=== PATIENT | female | born 1955 | race Caucasian/White ===

== ENCOUNTER 2017-01-15 10:12 | Outpatient (CLI) ==
[2017-01-15 10:52] LABS: HEMATOCRIT 44.6 % (37.0-47.0); HEMOGLOBIN 15.2 g/dl (12.0-16.0); MEAN CORPUSCULAR HEMOGLOBIN 29.9 pg (27.0-31.0); MEAN CORPUSCULAR HGB CONC 34.1 (31.8-35.4); MEAN CORPUSCULAR VOLUME 87.6 fl (81.0-99.0); RED BLOOD COUNT 5.09 10^6/ul (4.20-5.40); WHITE BLOOD COUNT 8.73 K/ul (4.6-10.2)
[2017-01-15 11:35] LABS: ALBUMIN 3.3 g/dL (3.4-5.0); ALBUMIN/GLOBULIN RATIO 0.89; ANION GAP 13.8; BILIRUBIN,TOTAL 0.23 mg/dL (0.00-1.20); BUN/CREATININE RATIO 22.72; CALCIUM 8.7 mg/dL (8.2-10.2); CREATININE 0.66 mg/dL (0.60-1.30); MAGNESIUM 2.1 mg/dL (1.7-2.2); PHOSPHORUS 3.5 mg/dL (2.8-4.1); POTASSIUM 3.8 mmol/L (3.5-5.10)
== END 2017-01-15 10:13 | disposition home or self-care (01) ==
LOC: LAB 10:12
PROVIDERS: ATTEND Nurse Practitioner Family
DX: M81.0 Age-related osteoporosis without current pathological fracture (principal)
CPT/HCPCS: 36415; 80053; 82306; 83735; 83970; 84100; 84443; 85027

== ENCOUNTER 2017-07-23 09:16 | Outpatient (CLI) ==
[2017-07-23 09:38] LABS: HEMATOCRIT 45.7 % (37.0-47.0); HEMOGLOBIN 15.8 g/dl (12.0-16.0); MEAN CORPUSCULAR HEMOGLOBIN 30.3 pg (27.0-31.0); MEAN CORPUSCULAR HGB CONC 34.6 (31.8-35.4); MEAN CORPUSCULAR VOLUME 87.7 fl (81.0-99.0); RED BLOOD COUNT 5.21 10^6/ul (4.20-5.40); WHITE BLOOD COUNT 9.54 K/ul (4.6-10.2)
[2017-07-23 10:17] LABS: ALBUMIN 3.5 g/dL (3.4-5.0); ALBUMIN/GLOBULIN RATIO 0.95; ANION GAP 15.9; BILIRUBIN,TOTAL 0.57 mg/dL (0.00-1.20); BUN/CREATININE RATIO 12.69; CALCIUM 9.4 mg/dL (8.2-10.2); CREATININE 0.63 mg/dL (0.60-1.30); PHOSPHORUS 3.2 mg/dL (2.8-4.1); POTASSIUM 3.9 mmol/L (3.5-5.10); TOTAL PROTEIN 7.2 g/dL (5.8-8.1)
== END 2017-07-23 09:17 | disposition home or self-care (01) ==
LOC: LAB 09:16
PROVIDERS: ATTEND Nurse Practitioner Family
DX: M81.0 Age-related osteoporosis without current pathological fracture (principal); Z78.0 Asymptomatic menopausal state
CPT/HCPCS: 36415; 80053; 82306; 83735; 83970; 84100; 84443; 85027

== ENCOUNTER 2019-03-30 09:11 | Outpatient (CLI) ==
[2017-09-20 10:09] VITALS: BMI 25.3
== END 2019-03-30 09:12 | disposition home or self-care (01) ==
LOC: LAB 09:11
PROVIDERS: ATTEND Internal Medicine
DX: C34.91 Malignant neoplasm of unspecified part of right bronchus or lung (principal)
CPT/HCPCS: 36415; 80053; 85025